=== PATIENT | female | born 1985 | race Caucasian/White ===

== ENCOUNTER → 2017-07-05 | Outpatient (CLI) | payer BC ==
[~2017-07-05] MED LIST: MOTRIN 400MG.400 MG PO; PRENATAL1 TA2 PO; ZANTAC 150150 MG PO
--- NOTE | 2017-07-06 06:37 | RADIOLOGY REPORT PS360 ---
MRI-BRAIN W/WO HISTORY: Paresthesias, headache, numbness of the whole body, short-term memory loss with headache, evaluate for multiple sclerosis PARESTHESIA OF SKIN, ANESTHESIA OF SKIN, HEADACHE, ELEVATE ORDERING PHYSICIAN: Tamanna HERNANDEZ PATIENT AGE: 31 years COMPARISON: None TECHNIQUE: Standard multiplanar multiecho sequences are performed without and with contrast. FINDINGS: No midline shift, mass effect, intracranial hemorrhage, hydrocephalus,. No evidence of acute infarction or enhancing lesions. No abnormal restricted diffusion. The nicole-white matter differentiation is within normal limits with no abnormal T2 white matter hyperintensities apparent. No intra or extra-axial mass. The pituitary, corpus callosum, and optic chiasm are unremarkable. The upper cervical cord has an unremarkable appearance. No evidence of cerebellar ectopia. No abnormal signal intensity within the optic tracts No mastoid effusion or sinus air-fluid level. IMPRESSION: Negative MRI of the brain without and with contrast. No MRI evidence of multiple sclerosis.
== END ==
LOC: RAD 09:42
DX: G44.52 New daily persistent headache (NDPH) (principal); R79.82 Elevated C-reactive protein (CRP); R20.2 Paresthesia of skin; R20.0 Anesthesia of skin
CPT/HCPCS: A9576